=== PATIENT | female | born 1995 | race Caucasian/White ===

== ENCOUNTER → 2016-03-02 | Outpatient (CLI) | payer OTHER ==
[~2016-03-02] MED LIST: BUPR150T5 PO; CNC/18 PO; MTRG45 TD; NORE1TAB32 PO; PHEN-876 PO; SPR28 PO; SULF800T23 PO; TRAZ50TA35 PO; WLLXL300 PO; ZLF50 PO
== END | disposition home or self-care (01) ==
LOC: C.PAPS 13:40
PROVIDERS: ATTEND Obstetrics & Gynecology
DX: Z12.4 Encounter for screening for malignant neoplasm of cervix (principal)

== ENCOUNTER → 2016-03-02 | Outpatient (CLI) | payer OTHER ==
[2016-03-05 14:03] LABS: CHLAMYDIA TRACH RNA*** NOT DETECTED (NOT DETECTED); GC (NEIS GONORRHOEAE)RNA** NOT DETECTED (NOT DETECTED)
== END | disposition home or self-care (01) ==
LOC: C.LABSPEC 15:03
PROVIDERS: ATTEND Obstetrics & Gynecology
DX: Z12.4 Encounter for screening for malignant neoplasm of cervix (principal)

== ENCOUNTER 2016-09-25 02:13 | Emergency (ER) | payer OTHER ==
[~2016-09-25] VITALS: Ht 162.6 cm; Wt 56.7 kg
[~2016-09-25 02:13] MED LIST changes: -BUPR150T5 PO; -CNC/18 PO; -NORE1TAB32 PO; -PHEN-876 PO; -SULF800T23 PO; -WLLXL300 PO
[2016-09-25 02:17] VITALS: TEMP 36.6; Ht 162.6 cm; Wt 56.7 kg
[2016-09-25] MEDS ORDERED: ONDANSETRON INJ 2 MG/ML 2 ML VIAL IV STA (02:34)
[2016-09-25] MEDS ORDERED: MoRPHine SULFATE 4 MG/ML 1 ML CARP\\VIAL IV ONE (02:45)
[2016-09-25] MEDS ORDERED: SODIUM CHLORIDE 0.9% 1000ML 1,000 ML IV ONE (02:45)
[2016-09-25] MEDS ORDERED: NORE1TAB32 PO (02:55)
[2016-09-25] MEDS ORDERED: WLLXL300 PO (02:55)
[2016-09-25] MEDS ORDERED: CNC/18 PO (02:55)
[2016-09-25] MEDS ORDERED: BUPR150T5 PO (02:55)
[2016-09-25 02:56] LABS: BASO % 0.2 %; BASO ABS # 0.02 K/uL (0-0.2); COMPLETE YES; EOS % 1.4 %; HEMATOCRIT 44.2 % (37-47); IG% 0.2 %; LYMPH % 21.6 %; LYMPH ABS # 2.39 K/uL (1.2-3.4); MEAN CELL VOLUME 96.3 fL (80-100); MEAN CORPUSCULAR HEMOGLOBIN 33.1 pg (25-34); MEAN CORPUSCULAR HGB CONC 34.4 g/dl (32-36); MEAN PLATELET VOLUME 9.3 fL (7.4-10.4); MONO % 8.5 %; NEUT % 68.1 %; PLATELET COUNT 213 K/uL (130-400); RED BLOOD COUNT 4.59 M/uL (4.2-5.4); WHITE BLOOD COUNT 11.09 K/uL (4.8-10.8)
[2016-09-25 03:19] LABS: MANUAL MICROSCOPIC REQUIRED? NO; REVIEW REQ? YES; URINE APPEARANCE TURBID (CLEAR); URINE BILIRUBIN NEG (NEG); URINE COLOR RED; URINE EPITHELIAL CELL AUTO >30 /lpf (0-5); URINE NITRITE POS (NEG); URINE PH 6.5 (4.5-7.5); URINE SPECIFIC GRAVITY 1.026 (1.000-1.030); UROBILINOGEN NEG (NEG); ZZUR CULT IF INDIC CLEAN CATCH YES
[2016-09-25 03:29] LABS: CALCIUM 9.2 mg/dl (8.5-10.1); CREATININE 0.84 mg/dl (0.60-1.20); POTASSIUM 3.4 mmol/L (3.5-5.1)
[2016-09-25 03:32] LABS: ALB/GLOB RATIO 1.5 (0.9-2)
[2016-09-25 03:58] LABS: URINE MUCUS PRESENT (NONE PRSENT)
[2016-09-25] MEDS ORDERED: OPTIRAY 320 IV PRN (05:00)
[2016-09-25 06:28] VITALS: BP 99/67; PULSE 72; O2SAT 98
[2016-09-25] MEDS ORDERED: SULF800T23 PO (06:28)
[2016-09-25] MEDS ORDERED: PHEN-876 PO (06:28)
[2016-09-25] MEDS ORDERED: SULFAMETHOXAZOLE/TRIMETHOPRIM DS 800/160MG TAB PO ONE (06:30)
--- NOTE | 2016-09-25 06:50 | DIAGNOSTIC IMAGING REPORT ---
CT ABD/PELVIS IV AND ORAL CONT CLINICAL HISTORY: Right lower quadrant abdominal pain COMPARISON STUDY: None. TECHNIQUE: Following the IV administration of 91 mL of Optiray-320, CT scan of the abdomen and pelvis was performed from the lung bases to the proximal femurs. Images are reviewed in the axial, sagittal, and coronal planes. IV contrast was administered without complication. A dose lowering technique was utilized adhering to the principles of ALARA. CT DOSE: 293.64 mGy.cm FINDINGS: Lower chest: The heart is normal in size and configuration, without pericardial effusion. The lung bases and pleural spaces are clear. Liver: The contrast-enhanced liver is normal in size, contour, and attenuation. There is no intrahepatic biliary ductal dilatation. The hepatic veins and portal veins are patent. Gallbladder: Unremarkable. Spleen: Normal in size and attenuation. Pancreas: Unremarkable. Adrenal glands: Unremarkable. Kidneys: There is symmetric renal cortical enhancement. The kidneys are normal in size without hydronephrosis. Bowel: There are no transition zones indicate bowel obstruction. The appendix appears normal as visualized. There is no acute diverticulitis. There is mild fecal retention. Peritoneum: There is trace free fluid likely physiologic. No free air is visualized. Vasculature: The abdominal aorta is normal in course and caliber. Adenopathy: None. Pelvic viscera: Borderline bladder wall thickening is likely secondary to incomplete distention Skeletal structures: No destructive osseous lesions are seen. IMPRESSION: 1. No evidence of bowel obstruction. No evidence of free air 2. No evidence of acute appendicitis. No evidence of acute diverticulitis 3. Mild fecal retention 4. Borderline bladder wall thickening, likely secondary to an incompletely distended bladder. Correlation with urinalysis is recommended. Electronically signed by: Lavelle Sierra M.D. 09/25/2016 6:48 AM Dictated Date/Time: 09/25/2016 6:45 AM
--- NOTE | 2016-09-25 07:01 | EMERGENCY ROOM VISIT NOTE ---
History First contact with patient: 02:21 Chief Complaint: ABDOMINAL PAIN Stated Complaint: LOWER ABD PAIN, MOSTLY RIGHT SIDE, PEEING BLOOD Nursing Triage Summary: patient states tonight she woke up with RLQ pain and bloody urine. also c/o nausea. History of Present Illness The patient is a 21 year old female who presents to the Emergency Room with complaints of painful urination for the past 4 hours. The patient states that her urine is bloody. She first noted symptoms around 10:30 PM, and has slowly developed right lower quadrant abdominal pain over the past 4 hours. The patient has not had fever or chills. She just completed her menses and denies chance of . She does not take medication on a regular basis. She has not had abdominal surgery in the past. She rates her overall discomfort a 6/10. Review of Systems More than 10 systems were reviewed and otherwise negative with the exception of history of present illness. Past Medical/Surgical History Medical Problems: (1) Depression (2) Fall in home (3) Lumbar contusion (4) Lumbar contusion (5) Traumatic brain injury Family History FH: HTN (hypertension) FH: diabetes mellitus FH: heart disease Social History Smoking Status: Current Some Day Smoker Alcohol Use: occasionally Marital Status: single Housing Status: lives with roommate Occupation Status: employed Current/Historical Medications Scheduled Bupropion HCl (Bupropion HCl Xl), 300 MG PO DAILY Bupropion Hcl (Bupropion Hcl Xl), 150 MG PO QAM Methylphenidate Hcl (Concerta), 18 MG PO QAM Norethindrone & Eth Estradiol (Cyclafem ), 1 TAB PO DAILY Phenazopyridine HCl (Pyridium), 200 MG PO TID Sulfa/Trimethoprim (Bactrim Ds 800MG/160MG), 1 TAB PO BID Physical Exam Vital Signs Date Time Temp Pulse Resp B/P (MAP) Pulse Ox O2 Delivery O2 Flow Rate FiO2 09/25/16 06:28 72 20 99/67 98 09/25/16 04:10 72 20 109/69 96 Room Air 09/25/16 02:17 36.6 85 18 122/80 97 Room Air Pain Rating (0-10): 2.0 Physical Exam VITALS: Vitals are noted on the nurse's note and reviewed by myself. Vital signs stable. GENERAL: Well-developed, well-nourished, white female, who is in no acute distress and resting comfortably. Patient is cooperative with the examination. HEART: Regular rate and rhythm without murmurs gallops or rubs. LUNGS: Clear to auscultation bilaterally without wheezes, rales or rhonchi. No retractions or accessory muscle use. ABDOMEN: Positive normal bowel sounds x 4. Soft with positive suprapubic and right lower quadrant tenderness on palpation. No rebound or guarding. No upper abdominal tenderness. No CVA tenderness. MUSCULOSKELETAL: No muscle atrophy, erythema, or edema noted. Full range of motion without joint tenderness in all extremities. Medical Decision & Procedures ER Provider Diagnostic Interpretation: CT ABD/PELVIS IV AND ORAL CONT CLINICAL HISTORY: Right lower quadrant abdominal pain COMPARISON STUDY: None. TECHNIQUE: Following the IV administration of 91 mL of Optiray-320, CT scan of the abdomen and pelvis was performed from the lung bases to the proximal femurs. Images are reviewed in the axial, sagittal, and coronal planes. IV contrast was administered without complication. A dose lowering technique was utilized adhering to the principles of ALARA. CT DOSE: 293.64 mGy.cm FINDINGS: Lower chest: The heart is normal in size and configuration, without pericardial effusion. The lung bases and pleural spaces are clear. Liver: The contrast-enhanced liver is normal in size, contour, and attenuation. There is no intrahepatic biliary ductal dilatation. The hepatic veins and portal veins are patent. Gallbladder: Unremarkable. Spleen: Normal in size and attenuation. Pancreas: Unremarkable. Adrenal glands: Unremarkable. Kidneys: There is symmetric renal cortical enhancement. The kidneys are normal in size without hydronephrosis. Bowel: There are no transition zones indicate bowel obstruction. The appendix appears normal as visualized. There is no acute diverticulitis. There is mild fecal retention. Peritoneum: There is trace free fluid likely physiologic. No free air is visualized. Vasculature: The abdominal aorta is normal in course and caliber. Adenopathy: None. Pelvic viscera: Borderline bladder wall thickening is likely secondary to incomplete distention Skeletal structures: No destructive osseous lesions are seen. IMPRESSION: 1. No evidence of bowel obstruction. No evidence of free air 2. No evidence of acute appendicitis. No evidence of acute diverticulitis 3. Mild fecal retention 4. Borderline bladder wall thickening, likely secondary to an incompletely distended bladder. Correlation with urinalysis is recommended. Laboratory Results 09/25/16 02:12 Red Blood Count 4.59, Mean Corpuscular Volume 96.3, Mean Corpuscular Hemoglobin 33.1, Mean Corpuscular Hemoglobin Concent 34.4, Mean Platelet Volume 9.3, Neutrophils (%) (Auto) 68.1, Lymphocytes (%) (Auto) 21.6, Monocytes (%) (Auto) 8.5, Eosinophils (%) (Auto) 1.4, Basophils (%) (Auto) 0.2, Neutrophils # (Auto) 7.56, Lymphocytes # (Auto) 2.39, Monocytes # (Auto) 0.94, Eosinophils # (Auto) 0.16, Basophils # (Auto) 0.02 09/25/16 02:12 Test 09/25/16 02:12 09/25/16 02:42 White Blood Count 11.09 K/uL (4.8-10.8) Red Blood Count 4.59 M/uL (4.2-5.4) Hemoglobin 15.2 g/dL (12.0-16.0) Hematocrit 44.2 % (37-47) Mean Corpuscular Volume 96.3 fL (80-100) Mean Corpuscular Hemoglobin 33.1 pg (25-34) Mean Corpuscular Hemoglobin Concent 34.4 g/dl (32-36) Platelet Count 213 K/uL (130-400) Mean Platelet Volume 9.3 fL (7.4-10.4) Neutrophils (%) (Auto) 68.1 % Lymphocytes (%) (Auto) 21.6 % Monocytes (%) (Auto) 8.5 % Eosinophils (%) (Auto) 1.4 % Basophils (%) (Auto) 0.2 % Neutrophils # (Auto) 7.56 K/uL (1.4-6.5) Lymphocytes # (Auto) 2.39 K/uL (1.2-3.4) Monocytes # (Auto) 0.94 K/uL (0.11-0.59) Eosinophils # (Auto) 0.16 K/uL (0-0.5) Basophils # (Auto) 0.02 K/uL (0-0.2) RDW Standard Deviation 49.5 fL (36.4-46.3) RDW Coefficient of Variation 13.9 % (11.5-14.5) Immature Granulocyte % (Auto) 0.2 % Immature Granulocyte # (Auto) 0.02 K/uL (0.00-0.02) Anion Gap 7.0 mmol/L (3-11) Est Creatinine Clear Calc Drug Dose 90.8 ml/min Estimated GFR () 114.3 Estimated GFR (Non- 98.7 BUN/Creatinine Ratio 16.0 (10-20) Calcium Level 9.2 mg/dl (8.5-10.1) Total Bilirubin 1.9 mg/dl (0.2-1) Aspartate Amino Transf (AST/SGOT) 22 U/L (15-37) Alanine Aminotransferase (ALT/SGPT) 24 U/L (12-78) Alkaline Phosphatase 75 U/L (45-117) Total Protein 6.8 gm/dl (6.4-8.2) Albumin 4.1 gm/dl (3.4-5.0) Globulin 2.7 gm/dl (2.5-4.0) Albumin/Globulin Ratio 1.5 (0.9-2) Lipase 142 U/L (73-393) Urine Color RED Urine Appearance TURBID (CLEAR) Urine pH 6.5 (4.5-7.5) Urine Specific Lyman 1.026 (1.000-1.030) Urine Protein 3+ (NEG) Urine Glucose (UA) NEG (NEG) Urine Ketones 1+ (NEG) Urine Occult Blood 3+ (NEG) Urine Nitrite POS (NEG) Urine Bilirubin NEG (NEG) Urine Urobilinogen NEG (NEG) Urine Leukocyte Esterase MODERATE (NEG) Urine WBC (Auto) >30 /hpf (0-5) Urine RBC (Auto) >30 /hpf (0-4) Urine Hyaline Casts (Auto) 0 /lpf (0-5) Urine Epithelial Cells (Auto) >30 /lpf (0-5) Urine Bacteria (Auto) NEG (NEG) Urine Pathogenic Casts /lpf (0) Urine Mucus PRESENT (NONE PRSENT) Urine Yeast (Auto) (NONE PRSENT) Urine Test NEG (NEG) Medications Administered Medications (Trade) Dose Ordered Sig/Bernadette Route Start Time Stop Time Status Last Admin Dose Admin Morphine Sulfate (MoRPHine SULFATE INJ) 4 mg NOW ONCE IV 09/25/16 02:45 09/25/16 02:46 DC 09/25/16 02:45 4 MG Sodium Chloride 1,000 ml @ 999 mls/hr Q1H1M ONCE IV 09/25/16 02:45 09/25/16 03:45 DC 09/25/16 02:45 999 MLS/HR Ondansetron HCl (Zofran Inj) 4 mg NOW STAT IV 09/25/16 02:34 09/25/16 02:36 DC 09/25/16 02:34 4 MG Trimethoprim/ Sulfamethoxazole (Septra Ds 800/ 160MG Tab) 1 tab NOW ONCE PO 09/25/16 06:30 09/25/16 06:31 DC 09/25/16 06:30 1 TAB ED Course Physical exam and history were performed. Nursing notes, EMR, and Medication List were personally reviewed. Patient appears to have suprapubic and right lower quadrant abdominal tenderness worsening over the past 4 hours. She is also complaining of blood in her urine. IV access was established and labs were obtained. The patient was hydrated and medicated as above. CT scan of the abdomen and pelvis was ordered with contrast. The patient's blood work is as above and was reviewed. She does not have a significantly elevated white blood cell count, gross anemia, bandemia, or significant electrolyte imbalance. Her urine is consistent with a UTI. CT scan is as above and does not reveal signs of acute surgical abdomen. She likely has cystitis on CT scan. On reevaluation the patient was quite comfortable and resting in her emergency department bed. I explained the results of her tests, and will give her a course of Bactrim with her first dose provided here in the department. The patient will be given a continuation course of this and Pyridium. She is to follow with her primary care physician for further care and management. She was otherwise invited back to the ER with any new, worsening, or concerning symptoms. The chart was completed utilizing [email or web address] Speech Voice Recognition Software. Grammatical errors, random word insertions, pronoun errors, and incomplete sentences are an occasional consequence of this system due to software limitations, ambient noise, and hardware issues. Any formal questions or concerns about the content, text, or information contained within the body of this dictation should be directly addressed to the provider for clarification. . Medical Decision Differential diagnosis: Etiologies such as appendicitis, diverticulitis, PUD, biliary pathology, UTI, pancreatitis, obstruction, mesenteric ischemia, aortic pathology, infections, inflammatory bowel disease, renal colic, as well as others were entertained. Impression Primary Impression: Hemorrhagic cystitis Departure Information Dispostion Home / Self-Care Condition GOOD Prescriptions Phenazopyridine HCl (Pyridium) 200 Mg Tab 200 MG PO TID for 3 Days, #9 TAB Prov: Landon Fields PA-C 09/25/16 Sulfa/Trimethoprim (Bactrim Ds 800MG/160MG) Tab 1 TAB PO BID for 9 Days, #19 TAB Prov: Landon Fields PA-C 09/25/16 Forms HOME CARE DOCUMENTATION FORM, IMPORTANT VISIT INFORMATION Patient Instructions My [facility] Additional Instructions You were seen and evaluated today on an emergency basis only. This is not a substitute for, or an effort to provide, complete comprehensive medical care. It is not possible to recognize and treat all injuries or illnesses in a single emergency department visit. For this reason it is recommended that you followup with your primary care physician with any ongoing or persistent symptoms. Trimethoprim-Sulfamethoxazole(Bactrim DS): Take one pill twice daily for 10 days for your urine infection. All antibiotics can cause diarrhea. If this occurs and you feel worse or it does not resolve in 1-2 days follow up with your doctor or return to the Emergency Department as this could be signs of serious underlying problems. Any medication can cause an allergic reaction, stop the pills immediately and return to the ER for rash, hives, breathing difficulties, or swelling. Take Pyridium 200 mg 3 times daily. This will turn your urine orange, but will significantly improve your pain. For baseline pain relief you may alternate ibuprofen and acetaminophen every 4 hours for pain control. Take 600 mg ibuprofen (Advil) and then 4 hours later take 1000 mg acetaminophen (Tylenol). Do not take more than 3000 mg acetaminophen in a single day. You are welcome to return to the emergency department anytime with new, worsening, or concerning symptoms.
== END 2016-09-25 06:38 | disposition home or self-care (01) ==
LOC: C.EDB 02:14
DX: N30.91 Cystitis, unspecified with hematuria (principal); F32.9 Major depressive disorder, single episode, unspecified; Z87.820 Personal history of traumatic brain injury; Z82.49 Family history of ischemic heart disease and other diseases of the circulatory system; Z83.3 Family history of diabetes mellitus; F17.210 Nicotine dependence, cigarettes, uncomplicated; Z79.899 Other long term (current) drug therapy

== ENCOUNTER → 2016-12-05 | Outpatient (CLI) | payer OTHER ==
[~2016-12-05] MED LIST changes: +BUPR150T5 PO; +CNC/18 PO; -MTRG45 TD; +NORE1TAB32 PO; -SPR28 PO; -TRAZ50TA35 PO; +WLLXL300 PO; -ZLF50 PO
== END | disposition home or self-care (01) ==
LOC: C.LABSPEC 17:22
PROVIDERS: ATTEND Physician Assistant
DX: N94.10 Unspecified dyspareunia (principal)

== ENCOUNTER → 2017-05-07 | Outpatient (CLI) | payer OTHER | END | disposition home or self-care (01) | LOC: C.LABSPEC 17:41 | PROVIDERS: ATTEND Physician Assistant | DX: Z01.419 Encounter for gynecological examination (general) (routine) without abnormal findings (principal) ==

== ENCOUNTER → 2017-05-07 | Outpatient (CLI) | payer OTHER | END | disposition home or self-care (01) | LOC: C.PAPS 09:45 | PROVIDERS: ATTEND Physician Assistant | DX: Z12.4 Encounter for screening for malignant neoplasm of cervix (principal); Z11.51 Encounter for screening for human papillomavirus (HPV) ==

== ENCOUNTER → 2017-06-04 | Outpatient (CLI) | payer OTHER | END | disposition home or self-care (01) | LOC: C.PATHSPEC 17:28 | PROVIDERS: ATTEND Obstetrics & Gynecology | DX: R87.613 High grade squamous intraepithelial lesion on cytologic smear of cervix (HGSIL) (principal) ==

== ENCOUNTER → 2017-08-07 | Outpatient (CLI) | payer OTHER | END | disposition home or self-care (01) | LOC: C.LAB 07:56 | PROVIDERS: ATTEND Nutritionist | DX: R53.83 Other fatigue (principal) ==